=== PATIENT | male | born 1970 | race African-American/Black ===

== ENCOUNTER 2016-12-09 20:38 | Emergency (ER) | payer OTHER ==
[~2016-12-09] VITALS: Ht 182.9 cm; Wt 90.7 kg
[~2016-12-09 20:38] MED LIST: AVELOX400 MG PO; BONE ESSENT166.75 MG PO; BUTALB-APAP-CA1 EACH PO; CALCIUM 500 MG1 EACH PO; CEPHALEXIN500 MG PO; COMPAZINE10 MG PO; DELTASONE20 M1 PO; DILAUDID1 MG/ML IV; DILAUDID2 MG PO; GUMMI BEAR MUL1 EACH PO; IBUPROFEN100 M1 PO; IBUPROFEN800 MG PO; IRON325 M1 PO; NEURONTIN300 MG PO; NOVOLOG PE100 UNITS/ SC; ONDANSETRON4 MG/2 ML IV; OXYCODONE-APAP1 EACH PO; PERCOCET 5/31 TABLET PO; PREDNISONE10 MG PO; VALTREX50 MG/ML PO; VITAMIN B-121000 MC1 SL; VITAMIN B122500 MCG PO
[2016-12-09 22:00] LABS: CHLORIDE 102 mEq/L (99-109); SODIUM 138 mEq/L (136-147)
[2016-12-09 22:02] LABS: GLUCOSE 118 mg/dL (70-99)
[2016-12-09 22:03] LABS: ANION GAP 9 MEQ/L (2-14)
[2016-12-09 22:06] LABS: GFR ESTIMATE (CALCULATED) > 59 mL/min/
[2016-12-09 22:07] LABS: UREA NITROGEN (BUN) 12 mg/dL (9-23)
[2016-12-09 22:51] LABS: EOSINOPHIL (%) 0.5 % (0-5); HEMATOCRIT 38.3 % (38.0-50.0); IMMATURE GRANULOCYTE (%) 0.3 % (0.0-0.7); INSTRUMENT ABS NEUTROPHIL CT 3.3 K/uL; LYMPHOCYTE COUNT 1.9 K/uL (1.0-2.8); MCH 29.5 PG (29.0-34.0); MCHC 36.6 G/DL (30.0-36.0); MCV 80.6 FL (86-99); MEAN PLAT.VOLUME 10.5 uM^3 (9.0-12.4); MONOCYTE COUNT 0.5 K/uL (0-0.8); NEUTROPHIL (%) 57.4 % (45-76); NEUTROPHIL COUNT 3.3 K/uL (1.8-6.4); PLATELET COUNT 192 K/uL (156-360); RBC DIS.WIDTH-CV 12.8 % (11.8-14.6); RBC DIS.WIDTH-SD 37.5 % (39-53); RED BLOOD COUNT 4.75 M/uL (4.00-5.50); WHITE BLOOD COUNT 5.8 K/uL (4.1-10.2)
[2016-12-10 01:39] VITALS: BP 126/88
== END 2016-12-10 02:00 | disposition short-term general hospital (02) ==
LOC: EME 20:38 → EXP 20:38
DX: T85.848A Pain due to other internal prosthetic devices, implants and grafts, initial encounter (principal); G89.18 Other acute postprocedural pain; H54.62 Unqualified visual loss, left eye, normal vision right eye; Y83.8 Other surgical procedures as the cause of abnormal reaction of the patient, or of later complication, without mention of misadventure at the time of the procedure; C85.90 Non-Hodgkin lymphoma, unspecified, unspecified site; Z87.891 Personal history of nicotine dependence
CPT/HCPCS: 80048; 83605; 85025; 99281; 99285; J1885

== ENCOUNTER 2017-01-31 19:59 | Inpatient (IN) | payer OTHER ==
[~2017-01-31] VITALS: Ht 182.9 cm; Wt 90.4 kg
[2017-01-31 21:12] LABS: ADD MIUA? YES; BILIRUBIN NEGATIVE; BLOOD NEGATIVE; COLOR YELLOW ((YELLOW)); GLUCOSE (STRIP) NEGATIVE; KETONES 5; LEUKOCYTES NEGATIVE; NITRITE NEGATIVE; PROTEIN (STRIP) 100; SPECIFIC GRAVITY 1.018 (1.000-1.030); UROBILINOGEN 0.2 MG/DL (0.2-1.0)
[2017-01-31 21:17] LABS: BACTERIA NONE SEEN /HPF; EPITHELIAL CELLS RARE /HPF; MUCUS TRACE /LPF; RED BLOOD CELLS 0-5 /HPF (0-5); UCUL ADDED? NO; WHITE BLOOD CELLS 0-5 /HPF (0-5)
[2017-01-31 21:36] LABS: CHLORIDE 102 mEq/L (99-109); POTASSIUM 4.4 mEq/L (3.7-5.4); SODIUM 134 mEq/L (136-147)
[2017-01-31 21:38] LABS: GLUCOSE 111 mg/dL (70-99)
[2017-01-31 21:39] LABS: ANION GAP 9 MEQ/L (2-14)
[2017-01-31 21:40] LABS: TOTAL BILIRUBIN 0.9 mg/dL (0.0-1.0)
[2017-01-31 21:41] LABS: ALKALINE PHOSPHATASE 65 IU/L (3-129)
[2017-01-31 21:42] LABS: GFR ESTIMATE (CALCULATED) > 59 mL/min/
[2017-01-31 21:43] LABS: UREA NITROGEN (BUN) 13 mg/dL (9-23)
[2017-01-31 21:46] LABS: TROP-I INTERPRETATION NEGATIVE; TROPONIN-I < 0.01 ng/mL (0.0-0.30)
[2017-01-31 22:56] LABS: NRBC (%) 0.2 /100 WBC (0-0)
[2017-01-31 22:58] LABS: HEMATOCRIT 26.2 % (38.0-50.0); RED BLOOD COUNT 3.25 M/uL (4.00-5.50); WHITE BLOOD COUNT 8.4 K/uL (4.1-10.2)
[2017-01-31] MEDS ORDERED: CALCIUM 600 +1 EAC2 PO (23:19)
[2017-01-31] MEDS ORDERED: MEN UNDER 50 M1 EACH PO (23:20)
[2017-01-31] MEDS ORDERED: TYLENOL EXTRA500 MG PO (23:20)
[2017-01-31] MEDS ORDERED: FISH OIL 1,0001 EAC7 PO (23:21)
[2017-01-31 23:35] LABS: EOSINOPHIL (%) 0 % (0-5); IMM.PLATELET FRACTION 9.9 (1-7); IMMATURE GRANULOCYTE (%) 1.3 % (0.0-0.7); IMMATURE GRANULOCYTE COUNT 0.1 K/uL; INSTRUMENT ABS NEUTROPHIL CT 4.8 K/uL; LYMPHOCYTE COUNT 1.9 K/uL (1.0-2.8); MONOCYTE (%) 19.1 % (3-12); MONOCYTE COUNT 1.6 K/uL (0-0.8); NEUTROPHIL (%) 56.5 % (45-76); NEUTROPHIL COUNT 4.8 K/uL (1.8-6.4); PLAT.SUFFICIENCY DECREASED; PLATELET COUNT 60 K/uL (156-360)
[2017-01-31 23:36] LABS: MCH ND PG (29.0-34.0); MCHC ND G/DL (30.0-36.0); MCV ND FL (86-99); RBC DIS.WIDTH-CV ND % (11.8-14.6); RBC DIS.WIDTH-SD ND % (39-53)
[2017-02-01] VITALS (7 sets, daily range): BP systolic 104–131; BP diastolic 62–85
[2017-02-01 07:38] LABS: POINT-OF-CARE METER ID UU13113781
[2017-02-01 10:41] LABS: POINT-OF-CARE METER ID UU13113781
[2017-02-01 12:48] LABS: INFLUENZA A VIRAL ANTIGEN NEGATIVE; INFLUENZA B VIRAL ANTIGEN NEGATIVE
[2017-02-01 16:21] LABS: POINT-OF-CARE METER ID UU13113781
[2017-02-01 21:13] LABS: POINT-OF-CARE METER ID UU13113698
[2017-02-02 04:13] VITALS: BP 120/68
[2017-02-02 06:51] LABS: ANION GAP 8 MEQ/L (2-14); CHLORIDE 102 MEQ/L (99-109); GFR ESTIMATE (CALCULATED) > 59 mL/min/; GLUCOSE 129 mg/dL (70-99); POTASSIUM 4.1 MEQ/L (3.7-5.4); SAMPLE HEMOLYSIS CHECK 0; SAMPLE ICTERIC CHECK 0; SAMPLE LIPEMIA CHECK 0; SODIUM 135 MEQ/L (136-147); UREA NITROGEN (BUN) 7 mg/dL (9-23)
[2017-02-02 07:05] VITALS: BP 105/60
[2017-02-02 07:10] LABS: HEMATOCRIT 24.2 % (38.0-50.0); IMM.PLATELET FRACTION 7.7 (1-7); MCV 73.6 FL (86-99); MEAN PLAT.VOLUME 11.8 uM^3 (9.0-12.4); NRBC (%) 0.3 /100 WBC (0-0); PLATELET COUNT 55 K/uL (156-360); RBC DIS.WIDTH-CV 14.6 % (11.8-14.6); RBC DIS.WIDTH-SD 38.3 % (39-53); RED BLOOD COUNT 3.29 M/uL (4.00-5.50)
[2017-02-02 08:23] LABS: POINT-OF-CARE METER ID UU14174216; POINT-OF-CARE USER ID ENVKC36
[2017-02-02 11:54] VITALS: BP 114/62
[2017-02-02 11:58] LABS: POINT-OF-CARE METER ID UU13113698; POINT-OF-CARE USER ID ENVKC36
[2017-02-02 14:00] VITALS: BP 116/60
[2017-02-02 14:30] LABS: INTER. NORMALIZED RATIO 1.2; PROTHROMBIN TIME 12.4 (9.2-11.2); PTT 27.4 (25-32)
[2017-02-02 17:11] LABS: POINT-OF-CARE METER ID UU13113698; POINT-OF-CARE USER ID ENVKC36
[2017-02-02 19:39] VITALS: BP 98/51
[2017-02-02 20:48] VITALS: BP 107/61
[2017-02-03 00:23] VITALS: BP 99/65
[2017-02-03 07:40] LABS: ANION GAP 9 MEQ/L (2-14); CHLORIDE 102 MEQ/L (99-109); GFR ESTIMATE (CALCULATED) > 59 mL/min/; GLUCOSE 103 mg/dL (70-99); SAMPLE HEMOLYSIS CHECK 0; SAMPLE ICTERIC CHECK 0; SAMPLE LIPEMIA CHECK 0; SODIUM 135 MEQ/L (136-147); UREA NITROGEN (BUN) 11 mg/dL (9-23)
[2017-02-03 07:42] LABS: POTASSIUM 5.2 MEQ/L (3.7-5.4)
[2017-02-03 07:53] LABS: HEMATOCRIT 20.9 % (38.0-50.0); MCH 27.6 PG (29.0-34.0); MCHC 36.8 G/DL (30.0-36.0); MCV 74.9 FL (86-99); NRBC (%) 0.4 /100 WBC (0-0); RBC DIS.WIDTH-CV 14.6 % (11.8-14.6); RBC DIS.WIDTH-SD 39.1 % (39-53); RED BLOOD COUNT 2.79 M/uL (4.00-5.50); WHITE BLOOD COUNT 7.5 K/uL (4.1-10.2)
[2017-02-03 08:03] VITALS: BP 98/56
[2017-02-03 08:18] LABS: IMM.PLATELET FRACTION 11.4 (1-7); PLAT.SUFFICIENCY DECREASED; PLATELET COUNT 44 K/uL (156-360)
[2017-02-03 13:42] LABS: Flow Clinical Information NOT PROVIDED (()); Flow Number of Markers 14 (()); Flow Spec Viability 38 % (())
[2017-02-03 16:30] VITALS: BP 134/79
[2017-02-03 18:38] LABS: HEMATOCRIT 19.5 % (38.0-50.0); HEMATOLOGY COMMENT 1 COLD AGGLUTININS; MCH 27.7 PG (29.0-34.0); MCHC 37.4 G/DL (30.0-36.0); MCV 73.9 FL (86-99); MEAN PLAT.VOLUME 12.5 uM^3 (9.0-12.4); NRBC (%) 0.3 /100 WBC (0-0); PLATELET COUNT 54 K/uL (156-360); RBC DIS.WIDTH-CV 14.8 % (11.8-14.6); RBC DIS.WIDTH-SD 39.2 % (39-53); RED BLOOD COUNT 2.64 M/uL (4.00-5.50); WHITE BLOOD COUNT 6.5 K/uL (4.1-10.2)
[2017-02-03 23:21] VITALS: BP 119/99
[2017-02-03 23:38] VITALS: BP 121/64
[2017-02-04] VITALS (8 sets, daily range): BP systolic 99–126; BP diastolic 53–81
[2017-02-04 07:11] LABS: ANION GAP 11 MEQ/L (2-14); CHLORIDE 103 MEQ/L (99-109); GFR ESTIMATE (CALCULATED) > 59 mL/min/; GLUCOSE 102 mg/dL (70-99); POTASSIUM 4.8 MEQ/L (3.7-5.4); SAMPLE HEMOLYSIS CHECK 0; SAMPLE ICTERIC CHECK 0; SAMPLE LIPEMIA CHECK 0; SODIUM 139 MEQ/L (136-147); UREA NITROGEN (BUN) 10 mg/dL (9-23)
[2017-02-04 08:10] LABS: EOSINOPHIL (%) 0 % (0-5); IMM.PLATELET FRACTION 10.5 (1-7); IMMATURE GRANULOCYTE (%) 1.8 % (0.0-0.7); IMMATURE GRANULOCYTE COUNT 0.1 K/uL; INSTRUMENT ABS NEUTROPHIL CT 4.7 K/uL; LYMPHOCYTE COUNT 1.8 K/uL (1.0-2.8); MCH 28.3 PG (29.0-34.0); MCHC 36.4 G/DL (30.0-36.0); MCV 77.6 FL (86-99); MEAN PLAT.VOLUME 12.1 uM^3 (9.0-12.4); MONOCYTE (%) 11.8 % (3-12); MONOCYTE COUNT 0.9 K/uL (0-0.8); NEUTROPHIL (%) 62.4 % (45-76); NEUTROPHIL COUNT 4.7 K/uL (1.8-6.4); NRBC (%) 0.3 /100 WBC (0-0); PLATELET COUNT 52 K/uL (156-360); RBC DIS.WIDTH-CV 15.8 % (11.8-14.6); RBC DIS.WIDTH-SD 43.6 % (39-53); WHITE BLOOD COUNT 7.6 K/uL (4.1-10.2)
[2017-02-04 08:11] LABS: RED BLOOD COUNT 3.61 M/uL (4.00-5.50)
[2017-02-05 07:57] VITALS: BP 121/84
[2017-02-05 15:57] VITALS: BP 121/81
[2017-02-05 23:32] VITALS: BP 118/86
[2017-02-06 07:43] VITALS: BP 101/61
[2017-02-06 10:37] LABS: HEMATOCRIT 29.7 % (38.0-50.0); MCH 28.3 PG (29.0-34.0); MCHC 36.4 G/DL (30.0-36.0); NRBC (%) 0.6 /100 WBC (0-0); RBC DIS.WIDTH-CV 16.9 % (11.8-14.6); RBC DIS.WIDTH-SD 46.8 % (39-53); RED BLOOD COUNT 3.81 M/uL (4.00-5.50); WHITE BLOOD COUNT 7.2 K/uL (4.1-10.2)
[2017-02-06 10:56] LABS: IMM.PLATELET FRACTION 12.2 (1-7); PLATELET COUNT 33 K/uL (156-360)
[2017-02-06 10:57] LABS: PLAT.SUFFICIENCY VERY DECREASED
[2017-02-06 14:55] VITALS: BP 118/65
[2017-02-06 19:39] LABS: NRBC (%) 0.6 /100 WBC (0-0)
[2017-02-06 21:41] LABS: HEMATOCRIT 27.2 % (38.0-50.0); IMM.PLATELET FRACTION 12.8 (1-7); MCHC 36.4 G/DL (30.0-36.0); MCV 77.1 FL (86-99); PLATELET COUNT 34 K/uL (156-360); RED BLOOD COUNT 3.53 M/uL (4.00-5.50); WHITE BLOOD COUNT 6.6 K/uL (4.1-10.2)
[2017-02-06 22:08] LABS: PLAT.SUFFICIENCY DECREASED
[2017-02-06 22:34] VITALS: BP 126/77
[2017-02-06 22:50] VITALS: BP 106/67
[2017-02-06 23:53] VITALS: BP 129/69
[2017-02-07 00:29] VITALS: BP 114/69
[2017-02-07 00:59] VITALS: BP 103/62
[2017-02-07 02:05] VITALS: BP 105/63
[2017-02-07 08:30] VITALS: BP 124/80
[2017-02-07 10:27] LABS: HEMATOCRIT 26.4 % (38.0-50.0); MCH 27.9 PG (29.0-34.0); MCHC 36.4 G/DL (30.0-36.0); MCV 76.7 FL (86-99); MEAN PLAT.VOLUME 11.1 uM^3 (9.0-12.4); NRBC (%) 0.4 /100 WBC (0-0); RBC DIS.WIDTH-CV 17.1 % (11.8-14.6); RBC DIS.WIDTH-SD 47.3 % (39-53); RED BLOOD COUNT 3.44 M/uL (4.00-5.50); WHITE BLOOD COUNT 6.9 K/uL (4.1-10.2)
[2017-02-07 10:32] LABS: PLATELET COUNT 70 K/uL (156-360)
[2017-02-07] MEDS ORDERED: MEGACE20 MG PO (11:27)
== END 2017-02-07 12:35 | disposition home or self-care (01) | DRG 842 ==
LOC: EME → EDBD 19:59 → 5SOUTH 02-01 00:31 → EDOF 02-01 00:31 → 4EAST 02-01 01:43 → 5SOUTH 02-02 20:20
PROVIDERS: Anesthesiology; Emergency Medicine; Hospitalist; Internal Medicine; Nurse Practitioner Adult Health; Radiology Diagnostic Radiology
DX: C83.33 Diffuse large B-cell lymphoma, intra-abdominal lymph nodes (principal); D69.6 Thrombocytopenia, unspecified; I95.9 Hypotension, unspecified; D63.0 Anemia in neoplastic disease; E11.9 Type 2 diabetes mellitus without complications; F12.90 Cannabis use, unspecified, uncomplicated; L29.9 Pruritus, unspecified; Z87.891 Personal history of nicotine dependence; M54.2 Cervicalgia; M79.1 Myalgia; R00.0 Tachycardia, unspecified; R06.00 Dyspnea, unspecified; R10.32 Left lower quadrant pain; R11.0 Nausea; R53.1 Weakness; R61 Generalized hyperhidrosis; R63.0 Anorexia; R50.9 Fever, unspecified
CPT/HCPCS: 71020; 74177; 76942; 80048; 80053; 81003; 82948; 83605; 83880; 84484; 85025; 85027; 85610; 85730; 86900; 86901; 86920; 87040; 87502; 87651 90; 88184 90; 88185 90; 88189 90; 88305; 88341 TC; 88342 TC; 93005; 99281; 99285; J0692; J0744; J1200; J1885; J2405; J3010; J3370; J7030; J7050; P9016; P9035

== ENCOUNTER 2017-02-11 13:01 | Inpatient (IN) | payer OTHER ==
[~2017-02-11] VITALS: Ht 182.9 cm; Wt 73.6 kg
[~2017-02-11 13:01] MED LIST changes: +CALCIUM 600 +1 EAC2 PO; +FISH OIL 1,0001 EAC7 PO; +MEGACE20 MG PO; +MEN UNDER 50 M1 EACH PO; +TYLENOL EXTRA500 MG PO
[2017-02-11 20:07] VITALS: BP 123/70
[2017-02-11 23:00] VITALS: BP 95/56
[2017-02-11 23:26] VITALS: BP 93/54
[2017-02-12] VITALS (9 sets, daily range): BP systolic 101–119; BP diastolic 61–71
[2017-02-12 09:10] LABS: ANION GAP 11 MEQ/L (2-14); CHLORIDE 94 MEQ/L (99-109); GFR ESTIMATE (CALCULATED) > 59 mL/min/; GLUCOSE 156 mg/dL (70-99); POTASSIUM 4.5 MEQ/L (3.7-5.4); SAMPLE HEMOLYSIS CHECK 0; SAMPLE ICTERIC CHECK 0; SAMPLE LIPEMIA CHECK 0; SODIUM 130 MEQ/L (136-147); UREA NITROGEN (BUN) 19 mg/dL (9-23)
[2017-02-12 09:24] LABS: HEMATOCRIT 23.2 % (38.0-50.0); NRBC (%) 0.4 /100 WBC (0-0); RBC DIS.WIDTH-CV 17.2 % (11.8-14.6); RED BLOOD COUNT 3.01 M/uL (4.00-5.50)
[2017-02-12 09:39] LABS: ABS NEUTROPHIL COUNT 3.4; ANISOCYTOSIS 1+; ATYPICAL LYMPHOCYTE 2.6 %; BASOPHILS 0.9 %; EOSINOPHIL ABS CT 0; HEMATOLOGY COMMENT 1 COLD AGGLUTININS; HYPOCHROMASIA 1+; IMM.PLATELET FRACTION 4.9 (1-7); INSTRUMENT ABS NEUTROPHIL CT 3.1 K/uL; LYMPHOCYTES 17.5 % (15.0-45.0); MEAN PLAT.VOLUME 9.6 uM^3 (9.0-12.4); METAMYELOCYTES 1.8 %; MICROCYTOSIS 1+; NUCLEATED RBC'S 0.9; ROULEAUX 1+; TARGET CELLS 1+
[2017-02-12 09:40] LABS: MCH 27.2 PG (29.0-34.0); MCHC 35.3 G/DL (30.0-36.0); MCV 77.1 FL (86-99); PLATELET COUNT 38 K/uL (156-360)
[2017-02-12 09:41] LABS: BAND NEUTROPHILS 8.8 % (0-8.0); PLAT.SUFFICIENCY VERY DECREASED; SEG.NEUTROPHILS 59.6 % (46.0-76.0)
[2017-02-13] VITALS (9 sets, daily range): BP systolic 107–125; BP diastolic 61–79
[2017-02-13 07:01] LABS: ANION GAP 13 MEQ/L (2-14); CHLORIDE 99 MEQ/L (99-109); GFR ESTIMATE (CALCULATED) > 59 mL/min/; GLUCOSE 200 mg/dL (70-99); MAGNESIUM 2.3 mg/dl (1.3-2.7); POTASSIUM 5.1 MEQ/L (3.7-5.4); SAMPLE HEMOLYSIS CHECK 0; SAMPLE ICTERIC CHECK 0; SAMPLE LIPEMIA CHECK 0; SODIUM 132 MEQ/L (136-147); UREA NITROGEN (BUN) 21 mg/dL (9-23)
[2017-02-13 09:50] LABS: EOSINOPHIL (%) 0.2 % (0-5); HEMATOCRIT 20.7 % (38.0-50.0); IMMATURE GRANULOCYTE (%) 2.2 % (0.0-0.7); IMMATURE GRANULOCYTE COUNT 0.1 K/uL; INSTRUMENT ABS NEUTROPHIL CT 3.2 K/uL; LYMPHOCYTE COUNT 0.8 K/uL (1.0-2.8); MCH 27.2 PG (29.0-34.0); MCHC 34.8 G/DL (30.0-36.0); MCV 78.1 FL (86-99); MONOCYTE (%) 9.1 % (3-12); MONOCYTE COUNT 0.4 K/uL (0-0.8); NEUTROPHIL (%) 70.3 % (45-76); NEUTROPHIL COUNT 3.2 K/uL (1.8-6.4); NRBC (%) 0.7 /100 WBC (0-0); RBC DIS.WIDTH-CV 17.2 % (11.8-14.6); RBC DIS.WIDTH-SD 48.4 % (39-53); RED BLOOD COUNT 2.65 M/uL (4.00-5.50); WHITE BLOOD COUNT 4.6 K/uL (4.1-10.2)
[2017-02-13 09:52] LABS: IMM.PLATELET FRACTION 7.6 (1-7); PLAT.SUFFICIENCY DECREASED
[2017-02-13 09:55] LABS: PLATELET COUNT 23 K/uL (156-360)
[2017-02-14] VITALS (9 sets, daily range): BP systolic 99–125; BP diastolic 59–80
[2017-02-14 06:42] LABS: ANION GAP 8 MEQ/L (2-14); CHLORIDE 103 MEQ/L (99-109); GFR ESTIMATE (CALCULATED) > 59 mL/min/; GLUCOSE 145 mg/dL (70-99); MAGNESIUM 2.2 mg/dl (1.3-2.7); POTASSIUM 4.7 MEQ/L (3.7-5.4); SAMPLE HEMOLYSIS CHECK 0; SAMPLE ICTERIC CHECK 0; SAMPLE LIPEMIA CHECK 0; SODIUM 135 MEQ/L (136-147); UREA NITROGEN (BUN) 19 mg/dL (9-23)
[2017-02-14 07:05] LABS: EOSINOPHIL (%) 0 % (0-5); HEMATOCRIT 25.6 % (38.0-50.0); IMMATURE GRANULOCYTE (%) 1.4 % (0.0-0.7); IMMATURE GRANULOCYTE COUNT 0.1 K/uL; INSTRUMENT ABS NEUTROPHIL CT 2.8 K/uL; LYMPHOCYTE COUNT 0.6 K/uL (1.0-2.8); MCHC 34.8 G/DL (30.0-36.0); MCV 77.6 FL (86-99); MONOCYTE (%) 5.5 % (3-12); MONOCYTE COUNT 0.2 K/uL (0-0.8); NEUTROPHIL (%) 77.6 % (45-76); NEUTROPHIL COUNT 2.8 K/uL (1.8-6.4); RBC DIS.WIDTH-CV 16.3 % (11.8-14.6); RBC DIS.WIDTH-SD 45.9 % (39-53); WHITE BLOOD COUNT 3.6 K/uL (4.1-10.2)
[2017-02-14 07:35] LABS: IMM.PLATELET FRACTION 6.5 (1-7); PLAT.SUFFICIENCY DECREASED; PLATELET COUNT 18 K/uL (156-360)
[2017-02-15 01:31] VITALS: BP 113/70
[2017-02-15 06:39] LABS: ANION GAP 7 MEQ/L (2-14); CHLORIDE 106 MEQ/L (99-109); GFR ESTIMATE (CALCULATED) > 59 mL/min/; GLUCOSE 113 mg/dL (70-99); MAGNESIUM 2.3 mg/dl (1.3-2.7); POTASSIUM 4.6 MEQ/L (3.7-5.4); SAMPLE HEMOLYSIS CHECK 0; SAMPLE ICTERIC CHECK 0; SAMPLE LIPEMIA CHECK 0; SODIUM 137 MEQ/L (136-147); UREA NITROGEN (BUN) 19 mg/dL (9-23)
[2017-02-15 06:48] LABS: EOSINOPHIL (%) 0.3 % (0-5); HEMATOCRIT 24.9 % (38.0-50.0); IMMATURE GRANULOCYTE (%) 3.8 % (0.0-0.7); IMMATURE GRANULOCYTE COUNT 0.1 K/uL; INSTRUMENT ABS NEUTROPHIL CT 2.5 K/uL; LYMPHOCYTE COUNT 0.5 K/uL (1.0-2.8); MCHC 34.1 G/DL (30.0-36.0); MEAN PLAT.VOLUME 10.2 uM^3 (9.0-12.4); MONOCYTE (%) 3.2 % (3-12); MONOCYTE COUNT 0.1 K/uL (0-0.8); NEUTROPHIL (%) 78.4 % (45-76); NEUTROPHIL COUNT 2.5 K/uL (1.8-6.4); RBC DIS.WIDTH-CV 16.7 % (11.8-14.6); RBC DIS.WIDTH-SD 47.7 % (39-53); RED BLOOD COUNT 3.15 M/uL (4.00-5.50); WHITE BLOOD COUNT 3.2 K/uL (4.1-10.2)
[2017-02-15 06:49] LABS: PLATELET COUNT 94 K/uL (156-360)
[2017-02-15 09:12] VITALS: BP 113/70
[2017-02-15] MEDS ORDERED: BACTRIM,SEPT1 TABLET PO (11:18)
[2017-02-15] MEDS ORDERED: ZOFRAN8 MG PO (11:18)
[2017-02-15] MEDS ORDERED: ACYCLOVIR200 MG PO (11:18)
[2017-02-15] MEDS ORDERED: ALLOPURINOL100 MG PO (11:27)
== END 2017-02-15 12:59 | disposition home or self-care (01) | DRG 847 ==
LOC: 5EAST 13:01
PROVIDERS: Anesthesiology
PROC: 3E04305 Introduction of Other Antineoplastic into Central Vein, Percutaneous Approach (ICD-10-PCS; principal; 2017-02-11)
PROC: 30243N1 Transfusion of Nonautologous Red Blood Cells into Central Vein, Percutaneous Approach (ICD-10-PCS; 2017-02-13)
PROC: 30243R1 Transfusion of Nonautologous Platelets into Central Vein, Percutaneous Approach (ICD-10-PCS; 2017-02-14)
DX: Z51.11 Encounter for antineoplastic chemotherapy (principal); C83.39 Diffuse large B-cell lymphoma, extranodal and solid organ sites; D69.6 Thrombocytopenia, unspecified; D63.0 Anemia in neoplastic disease; E86.0 Dehydration; R50.9 Fever, unspecified; Z87.891 Personal history of nicotine dependence
CPT/HCPCS: 36415; 76937; 80048; 80053; 83735; 85025; 86900; 86901; 86920; J1100; J1200; J2469; J2930; J7030; J7040; J7050; J8540; J9045; J9181; J9208; J9209; J9310; P9016; P9035; Q0166

== ENCOUNTER 2017-03-04 22:34 | Inpatient (IN) | payer OTHER ==
[~2017-03-04] VITALS: Ht 182.9 cm; Wt 83.1 kg
[~2017-03-04 22:34] MED LIST changes: +ACYCLOVIR200 MG PO; +ALLOPURINOL100 MG PO; +BACTRIM,SEPT1 TABLET PO; +ZOFRAN8 MG PO
[2017-03-05 08:30] VITALS: BP 114/67
[2017-03-05 09:39] LABS: ALKALINE PHOSPHATASE 96 IU/L (3-129); ANION GAP 7 MEQ/L (2-14); CHLORIDE 104 MEQ/L (99-109); GFR ESTIMATE (CALCULATED) > 59 mL/min/; GLUCOSE 119 mg/dL (70-99); MAGNESIUM 1.7 mg/dl (1.3-2.7); SAMPLE HEMOLYSIS CHECK 0; SAMPLE ICTERIC CHECK 0; SAMPLE LIPEMIA CHECK 0; SODIUM 139 MEQ/L (136-147); TOTAL BILIRUBIN 0.8 MG/DL (0.0-1.0); UREA NITROGEN (BUN) 13 mg/dL (9-23)
[2017-03-05 10:14] LABS: EOSINOPHIL (%) 0.2 % (0-5); HEMATOCRIT 25.1 % (38.0-50.0); IMMATURE GRANULOCYTE (%) 1.6 % (0.0-0.7); IMMATURE GRANULOCYTE COUNT 0.1 K/uL; INSTRUMENT ABS NEUTROPHIL CT 2.8 K/uL; LYMPHOCYTE COUNT 1.3 K/uL (1.0-2.8); MCHC 33.9 G/DL (30.0-36.0); MCV 85.7 FL (86-99); MONOCYTE (%) 17.2 % (3-12); MONOCYTE COUNT 0.9 K/uL (0-0.8); NEUTROPHIL (%) 55.6 % (45-76); NEUTROPHIL COUNT 2.8 K/uL (1.8-6.4); RBC DIS.WIDTH-CV 17.4 % (11.8-14.6); RBC DIS.WIDTH-SD 51.6 % (39-53); WHITE BLOOD COUNT 5.1 K/uL (4.1-10.2)
[2017-03-05 10:18] LABS: RED BLOOD COUNT 2.93 M/uL (4.00-5.50)
[2017-03-05 10:31] LABS: IMM.PLATELET FRACTION 6.3 (1-7); MEAN PLAT.VOLUME 11.3 uM^3 (9.0-12.4); PLAT.SUFFICIENCY DECREASED
[2017-03-05 10:35] LABS: PLATELET COUNT 48 K/uL (156-360)
[2017-03-05 15:00] VITALS: BP 106/56
[2017-03-06] VITALS (15 sets, daily range): BP systolic 112–145; BP diastolic 58–84
[2017-03-06 06:34] LABS: ALKALINE PHOSPHATASE 82 IU/L (3-129); ANION GAP 6 MEQ/L (2-14); CHLORIDE 107 MEQ/L (99-109); GFR ESTIMATE (CALCULATED) > 59 mL/min/; GLUCOSE 161 mg/dL (70-99); MAGNESIUM 1.8 mg/dl (1.3-2.7); POTASSIUM 4.3 MEQ/L (3.7-5.4); SAMPLE HEMOLYSIS CHECK 0; SAMPLE ICTERIC CHECK 0; SAMPLE LIPEMIA CHECK 0; SODIUM 141 MEQ/L (136-147); TOTAL BILIRUBIN 0.8 MG/DL (0.0-1.0); UREA NITROGEN (BUN) 13 mg/dL (9-23)
[2017-03-06 07:07] LABS: EOSINOPHIL (%) 0 % (0-5); IMMATURE GRANULOCYTE (%) 1.2 % (0.0-0.7); IMMATURE GRANULOCYTE COUNT 0.1 K/uL; LYMPHOCYTE COUNT 0.9 K/uL (1.0-2.8); MCH 30.4 PG (29.0-34.0); MEAN PLAT.VOLUME 10.5 uM^3 (9.0-12.4); MONOCYTE (%) 12.6 % (3-12); MONOCYTE COUNT 1.2 K/uL (0-0.8); NRBC (%) 0.5 /100 WBC (0-0); PLATELET COUNT 45 K/uL (156-360); RBC DIS.WIDTH-CV 17.2 % (11.8-14.6); RBC DIS.WIDTH-SD 52.2 % (39-53); RED BLOOD COUNT 2.53 M/uL (4.00-5.50); WHITE BLOOD COUNT 9.2 K/uL (4.1-10.2)
[2017-03-06 07:25] LABS: PLAT.SUFFICIENCY DECREASED
[2017-03-07 06:44] LABS: EOSINOPHIL (%) 0 % (0-5); IMMATURE GRANULOCYTE (%) 0.6 % (0.0-0.7); IMMATURE GRANULOCYTE COUNT 0.1 K/uL; INSTRUMENT ABS NEUTROPHIL CT 5.7 K/uL; LYMPHOCYTE COUNT 1.3 K/uL (1.0-2.8); MCV 86.6 FL (86-99); MEAN PLAT.VOLUME 10.8 uM^3 (9.0-12.4); MONOCYTE (%) 12.8 % (3-12); NEUTROPHIL COUNT 5.7 K/uL (1.8-6.4); NRBC (%) 0.4 /100 WBC (0-0); RBC DIS.WIDTH-CV 16.7 % (11.8-14.6); RBC DIS.WIDTH-SD 48.8 % (39-53); RED BLOOD COUNT 2.54 M/uL (4.00-5.50); WHITE BLOOD COUNT 8.1 K/uL (4.1-10.2)
[2017-03-07 06:53] LABS: MCH 36.6 PG (29.0-34.0); MCHC 42.3 G/DL (30.0-36.0); PLATELET COUNT 106 K/uL (156-360)
[2017-03-07 07:12] LABS: ALKALINE PHOSPHATASE 71 IU/L (3-129); ANION GAP 8 MEQ/L (2-14); CHLORIDE 108 MEQ/L (99-109); GFR ESTIMATE (CALCULATED) > 59 mL/min/; MAGNESIUM 1.8 mg/dl (1.3-2.7); SAMPLE HEMOLYSIS CHECK 0; SAMPLE ICTERIC CHECK 0; SAMPLE LIPEMIA CHECK 0; SODIUM 142 MEQ/L (136-147); UREA NITROGEN (BUN) 13 mg/dL (9-23)
[2017-03-07 07:13] LABS: GLUCOSE 94 mg/dL (70-99); TOTAL BILIRUBIN 1.1 MG/DL (0.0-1.0)
[2017-03-07 08:00] VITALS: BP 122/67
[2017-03-07 15:23] VITALS: BP 116/69
[2017-03-07 23:03] VITALS: BP 127/78
[2017-03-08 07:00] LABS: ALKALINE PHOSPHATASE 73 IU/L (3-129); ANION GAP 6 MEQ/L (2-14); CHLORIDE 102 MEQ/L (99-109); GFR ESTIMATE (CALCULATED) > 59 mL/min/; GLUCOSE 83 mg/dL (70-99); MAGNESIUM 1.8 mg/dl (1.3-2.7); POTASSIUM 4.1 MEQ/L (3.7-5.4); SAMPLE HEMOLYSIS CHECK 0; SAMPLE ICTERIC CHECK 0; SAMPLE LIPEMIA CHECK 0; SODIUM 138 MEQ/L (136-147); UREA NITROGEN (BUN) 13 mg/dL (9-23)
[2017-03-08 07:08] VITALS: BP 119/67
[2017-03-08 07:08] LABS: TOTAL BILIRUBIN 1.8 MG/DL (0.0-1.0)
[2017-03-08 07:12] LABS: EOSINOPHIL (%) 0 % (0-5); HEMATOCRIT 27.4 % (38.0-50.0); IMMATURE GRANULOCYTE (%) 0.5 % (0.0-0.7); INSTRUMENT ABS NEUTROPHIL CT 2.8 K/uL; LYMPHOCYTE COUNT 1.1 K/uL (1.0-2.8); MCH 30.4 PG (29.0-34.0); MCHC 35.8 G/DL (30.0-36.0); MCV 85.1 FL (86-99); MEAN PLAT.VOLUME 10.5 uM^3 (9.0-12.4); MONOCYTE (%) 7.2 % (3-12); MONOCYTE COUNT 0.3 K/uL (0-0.8); NEUTROPHIL (%) 66.6 % (45-76); NEUTROPHIL COUNT 2.8 K/uL (1.8-6.4); PLATELET COUNT 117 K/uL (156-360); RBC DIS.WIDTH-SD 50.4 % (39-53); RED BLOOD COUNT 3.22 M/uL (4.00-5.50); WHITE BLOOD COUNT 4.2 K/uL (4.1-10.2)
== END 2017-03-08 09:56 | disposition home or self-care (01) | DRG 846 ==
LOC: ENRESERV 22:34 → 5EAST 03-05 08:13
PROVIDERS: Anesthesiology
PROC: 3E03305 Introduction of Other Antineoplastic into Peripheral Vein, Percutaneous Approach (ICD-10-PCS; principal; 2017-03-05)
PROC: 30233N1 Transfusion of Nonautologous Red Blood Cells into Peripheral Vein, Percutaneous Approach (ICD-10-PCS; 2017-03-06)
PROC: 30233R1 Transfusion of Nonautologous Platelets into Peripheral Vein, Percutaneous Approach (ICD-10-PCS; 2017-03-06)
DX: Z51.11 Encounter for antineoplastic chemotherapy (principal); C83.39 Diffuse large B-cell lymphoma, extranodal and solid organ sites; D61.810 Antineoplastic chemotherapy induced pancytopenia; R20.0 Anesthesia of skin; Z87.891 Personal history of nicotine dependence
CPT/HCPCS: 71010; 80053; 83735; 85025; 86900; 86901; 86920; J1100; J1200; J2405; J2469; J2930; J7030; J7040; J7050; J8540; J9045; J9181; J9208; J9209; J9310; P9016; P9037; Q0166

== ENCOUNTER 2017-03-25 19:35 | Inpatient (IN) | payer OTHER ==
[~2017-03-25] VITALS: Ht 182.9 cm; Wt 82.0 kg
[~2017-03-25 19:35] MED LIST changes: +ZOVIRAX200 MG PO
[2017-03-26] VITALS (10 sets, daily range): BP systolic 100–128; BP diastolic 58–80
[2017-03-26 11:28] LABS: EOSINOPHIL (%) 0.2 % (0-5); HEMATOCRIT 23.8 % (38.0-50.0); IMMATURE GRANULOCYTE (%) 1.3 % (0.0-0.7); IMMATURE GRANULOCYTE COUNT 0.1 K/uL; INSTRUMENT ABS NEUTROPHIL CT 2.8 K/uL; MCH 29.5 PG (29.0-34.0); MCHC 32.8 G/DL (30.0-36.0); MCV 90.2 FL (86-99); MONOCYTE (%) 15.9 % (3-12); MONOCYTE COUNT 0.7 K/uL (0-0.8); NEUTROPHIL (%) 60.2 % (45-76); NEUTROPHIL COUNT 2.8 K/uL (1.8-6.4); NRBC (%) 2.4 /100 WBC (0-0); PLATELET COUNT 89 K/uL (156-360); RBC DIS.WIDTH-CV 18.5 % (11.8-14.6); RBC DIS.WIDTH-SD 53.7 % (39-53); RED BLOOD COUNT 2.64 M/uL (4.00-5.50); WHITE BLOOD COUNT 4.7 K/uL (4.1-10.2)
[2017-03-26 12:18] LABS: ANION GAP 10 MEQ/L (2-14); CHLORIDE 108 MEQ/L (99-109); GFR ESTIMATE (CALCULATED) > 59 mL/min/; GLUCOSE 110 mg/dL (70-99); SAMPLE HEMOLYSIS CHECK 0; SAMPLE ICTERIC CHECK 0; SAMPLE LIPEMIA CHECK 0; SODIUM 143 MEQ/L (136-147); UREA NITROGEN (BUN) 11 mg/dL (9-23)
[2017-03-27 05:16] VITALS: BP 120/72
[2017-03-27 06:10] LABS: EOSINOPHIL (%) 0 % (0-5); HEMATOCRIT 30.4 % (38.0-50.0); IMMATURE GRANULOCYTE (%) 1.9 % (0.0-0.7); IMMATURE GRANULOCYTE COUNT 0.2 K/uL; INSTRUMENT ABS NEUTROPHIL CT 9.4 K/uL; LYMPHOCYTE COUNT 0.6 K/uL (1.0-2.8); MCHC 34.9 G/DL (30.0-36.0); MCV 88.9 FL (86-99); MEAN PLAT.VOLUME 12.3 uM^3 (9.0-12.4); MONOCYTE (%) 0.6 % (3-12); MONOCYTE COUNT 0.1 K/uL (0-0.8); NEUTROPHIL (%) 91.8 % (45-76); NEUTROPHIL COUNT 9.4 K/uL (1.8-6.4); NRBC (%) 0.8 /100 WBC (0-0); PLATELET COUNT 102 K/uL (156-360); RBC DIS.WIDTH-CV 17.5 % (11.8-14.6); RBC DIS.WIDTH-SD 50.8 % (39-53); WHITE BLOOD COUNT 10.3 K/uL (4.1-10.2)
[2017-03-27 06:11] LABS: RED BLOOD COUNT 3.42 M/uL (4.00-5.50)
[2017-03-27 06:31] LABS: ALKALINE PHOSPHATASE 76 IU/L (3-129); ANION GAP 9 MEQ/L (2-14); CHLORIDE 108 MEQ/L (99-109); GFR ESTIMATE (CALCULATED) > 59 mL/min/; GLUCOSE 169 mg/dL (70-99); MAGNESIUM 1.8 mg/dl (1.3-2.7); POTASSIUM 4.5 MEQ/L (3.7-5.4); SAMPLE HEMOLYSIS CHECK 0; SAMPLE ICTERIC CHECK 0; SAMPLE LIPEMIA CHECK 0; SODIUM 142 MEQ/L (136-147); TOTAL BILIRUBIN 0.7 MG/DL (0.0-1.0); UREA NITROGEN (BUN) 11 mg/dL (9-23)
[2017-03-27 08:18] VITALS: BP 107/58
[2017-03-27 12:36] VITALS: BP 128/74
[2017-03-27 16:31] VITALS: BP 137/83
[2017-03-27 19:48] VITALS: BP 134/88
[2017-03-28] VITALS (7 sets, daily range): BP systolic 111–148; BP diastolic 68–95
[2017-03-28 06:34] LABS: EOSINOPHIL (%) 0 % (0-5); HEMATOCRIT 29.7 % (38.0-50.0); IMMATURE GRANULOCYTE (%) 0.8 % (0.0-0.7); IMMATURE GRANULOCYTE COUNT 0.1 K/uL; INSTRUMENT ABS NEUTROPHIL CT 7.3 K/uL; LYMPHOCYTE COUNT 0.7 K/uL (1.0-2.8); MCHC 33.7 G/DL (30.0-36.0); MCV 89.2 FL (86-99); MEAN PLAT.VOLUME 11.9 uM^3 (9.0-12.4); MONOCYTE (%) 11.8 % (3-12); MONOCYTE COUNT 1.1 K/uL (0-0.8); NEUTROPHIL (%) 79.7 % (45-76); NEUTROPHIL COUNT 7.3 K/uL (1.8-6.4); NRBC (%) 0.3 /100 WBC (0-0); PLATELET COUNT 112 K/uL (156-360); RBC DIS.WIDTH-CV 17.7 % (11.8-14.6); RBC DIS.WIDTH-SD 53.1 % (39-53); RED BLOOD COUNT 3.33 M/uL (4.00-5.50); WHITE BLOOD COUNT 9.1 K/uL (4.1-10.2)
[2017-03-28 07:09] LABS: ALKALINE PHOSPHATASE 68 IU/L (3-129); ANION GAP 8 MEQ/L (2-14); CHLORIDE 108 MEQ/L (99-109); GFR ESTIMATE (CALCULATED) > 59 mL/min/; MAGNESIUM 1.8 mg/dl (1.3-2.7); SAMPLE HEMOLYSIS CHECK 0; SAMPLE ICTERIC CHECK 0; SAMPLE LIPEMIA CHECK 0; SODIUM 141 MEQ/L (136-147); TOTAL BILIRUBIN 0.7 MG/DL (0.0-1.0); UREA NITROGEN (BUN) 14 mg/dL (9-23)
[2017-03-28 07:10] LABS: GLUCOSE 115 mg/dL (70-99)
[2017-03-28 10:57] LABS: POINT-OF-CARE METER ID UU13113725
[2017-03-28 16:15] LABS: POINT-OF-CARE METER ID UU13113725
[2017-03-29 06:43] LABS: EOSINOPHIL (%) 0 % (0-5); HEMATOCRIT 30.5 % (38.0-50.0); IMMATURE GRANULOCYTE (%) 0.3 % (0.0-0.7); INSTRUMENT ABS NEUTROPHIL CT 5.1 K/uL; LYMPHOCYTE COUNT 0.5 K/uL (1.0-2.8); MCH 29.9 PG (29.0-34.0); MCHC 33.8 G/DL (30.0-36.0); MCV 88.4 FL (86-99); MEAN PLAT.VOLUME 11.7 uM^3 (9.0-12.4); MONOCYTE (%) 6.4 % (3-12); MONOCYTE COUNT 0.4 K/uL (0-0.8); NEUTROPHIL (%) 85.5 % (45-76); NEUTROPHIL COUNT 5.1 K/uL (1.8-6.4); PLATELET COUNT 115 K/uL (156-360); RBC DIS.WIDTH-CV 16.8 % (11.8-14.6); RBC DIS.WIDTH-SD 52.5 % (39-53); RED BLOOD COUNT 3.45 M/uL (4.00-5.50); WHITE BLOOD COUNT 5.9 K/uL (4.1-10.2)
[2017-03-29 07:06] LABS: ALKALINE PHOSPHATASE 68 IU/L (3-129); ANION GAP 8 MEQ/L (2-14); CHLORIDE 101 MEQ/L (99-109); GFR ESTIMATE (CALCULATED) > 59 mL/min/; GLUCOSE 112 mg/dL (70-99); MAGNESIUM 1.8 mg/dl (1.3-2.7); POTASSIUM 4.5 MEQ/L (3.7-5.4); SAMPLE HEMOLYSIS CHECK 0; SAMPLE ICTERIC CHECK 0; SAMPLE LIPEMIA CHECK 0; SODIUM 137 MEQ/L (136-147); UREA NITROGEN (BUN) 13 mg/dL (9-23)
[2017-03-29 07:10] LABS: TOTAL BILIRUBIN 1.4 MG/DL (0.0-1.0)
[2017-03-29 07:23] VITALS: BP 107/61
== END 2017-03-29 10:44 | disposition home or self-care (01) | DRG 847 ==
LOC: ENRESERV 19:35 → 5EAST 03-26 09:46
PROVIDERS: Anesthesiology
PROC: 30233N1 Transfusion of Nonautologous Red Blood Cells into Peripheral Vein, Percutaneous Approach (ICD-10-PCS; principal; 2017-03-26)
PROC: 3E03305 Introduction of Other Antineoplastic into Peripheral Vein, Percutaneous Approach (ICD-10-PCS; 2017-03-27)
DX: Z51.11 Encounter for antineoplastic chemotherapy (principal); D61.9 Aplastic anemia, unspecified; C83.39 Diffuse large B-cell lymphoma, extranodal and solid organ sites; D69.6 Thrombocytopenia, unspecified; D64.81 Anemia due to antineoplastic chemotherapy; T45.1X5A Adverse effect of antineoplastic and immunosuppressive drugs, initial encounter; Z72.0 Tobacco use
CPT/HCPCS: 71010; 80048; 80053; 82948; 83735; 85025; 86850; 86900; 86901; 86920; J1100; J1200; J2405; J2469; J2930; J7030; J7040; J7050; J8540; J9045; J9181; J9208; J9209; J9310; P9016; Q0166

== ENCOUNTER 2017-05-31 | Inpatient (IN) | payer OTHER ==
[~2017-05-31] VITALS: Ht 182.9 cm; Wt 94.1 kg
[2017-06-01 12:50] VITALS: BP 139/92
[2017-06-01] MEDS ORDERED: B-123000 MCG SL (14:00)
[2017-06-01 14:16] LABS: HEMATOCRIT 36.5 % (38.0-50.0); IMMATURE GRANULOCYTE (%) 0.3 % (0.0-0.7); INSTRUMENT ABS NEUTROPHIL CT 1.3 K/uL; LYMPHOCYTE COUNT 1.3 K/uL (1.0-2.8); MCH 31.8 PG (29.0-34.0); MCHC 35.6 G/DL (30.0-36.0); MCV 89.2 FL (86-99); MEAN PLAT.VOLUME 11.1 uM^3 (9.0-12.4); MONOCYTE (%) 11.9 % (3-12); MONOCYTE COUNT 0.4 K/uL (0-0.8); NEUTROPHIL (%) 42.6 % (45-76); NEUTROPHIL COUNT 1.3 K/uL (1.8-6.4); RBC DIS.WIDTH-CV 12.8 % (11.8-14.6); RBC DIS.WIDTH-SD 42.2 % (39-53); RED BLOOD COUNT 4.09 M/uL (4.00-5.50); WHITE BLOOD COUNT 2.9 K/uL (4.1-10.2)
[2017-06-01 14:19] LABS: PLATELET COUNT 74 K/uL (156-360)
[2017-06-01 14:36] LABS: ANION GAP 6 MEQ/L (2-14); CHLORIDE 109 MEQ/L (99-109); GFR ESTIMATE (CALCULATED) > 59 mL/min/; GLUCOSE 74 mg/dL (70-99); POTASSIUM 4.2 MEQ/L (3.7-5.4); SAMPLE HEMOLYSIS CHECK 0; SAMPLE ICTERIC CHECK 0; SAMPLE LIPEMIA CHECK 0; SODIUM 141 MEQ/L (136-147); UREA NITROGEN (BUN) 15 mg/dL (9-23)
[2017-06-01 15:45] VITALS: BP 135/88
[2017-06-01 23:52] VITALS: BP 113/73
[2017-06-02 06:45] VITALS: BP 126/76
[2017-06-02 06:50] LABS: EOSINOPHIL (%) 0 % (0-5); HEMATOCRIT 35.9 % (38.0-50.0); IMMATURE GRANULOCYTE (%) 0.5 % (0.0-0.7); LYMPHOCYTE COUNT 0.7 K/uL (1.0-2.8); MCH 31.6 PG (29.0-34.0); MCHC 36.2 G/DL (30.0-36.0); MCV 87.3 FL (86-99); MEAN PLAT.VOLUME 10.9 uM^3 (9.0-12.4); MONOCYTE (%) 2.1 % (3-12); MONOCYTE COUNT 0.1 K/uL (0-0.8); NEUTROPHIL (%) 85.1 % (45-76); PLATELET COUNT 72 K/uL (156-360); RBC DIS.WIDTH-CV 12.4 % (11.8-14.6); RBC DIS.WIDTH-SD 39.8 % (39-53); RED BLOOD COUNT 4.11 M/uL (4.00-5.50); WHITE BLOOD COUNT 5.9 K/uL (4.1-10.2)
[2017-06-02 07:14] LABS: ALKALINE PHOSPHATASE 66 IU/L (3-129); ANION GAP 11 MEQ/L (2-14); CHLORIDE 105 MEQ/L (99-109); GFR ESTIMATE (CALCULATED) > 59 mL/min/; GLUCOSE 157 mg/dL (70-99); MAGNESIUM 1.6 mg/dl (1.3-2.7); POTASSIUM 4.1 MEQ/L (3.7-5.4); SAMPLE HEMOLYSIS CHECK 0; SAMPLE ICTERIC CHECK 0; SAMPLE LIPEMIA CHECK 0; SODIUM 139 MEQ/L (136-147); TOTAL BILIRUBIN 0.5 MG/DL (0.0-1.0); UREA NITROGEN (BUN) 17 mg/dL (9-23)
[2017-06-02 15:25] VITALS: BP 126/83
[2017-06-02 16:33] VITALS: BP 129/82
[2017-06-02 23:48] VITALS: BP 125/73
[2017-06-03 06:29] LABS: EOSINOPHIL (%) 0 % (0-5); HEMATOCRIT 35.8 % (38.0-50.0); IMMATURE GRANULOCYTE (%) 0.6 % (0.0-0.7); IMMATURE GRANULOCYTE COUNT 0.1 K/uL; INSTRUMENT ABS NEUTROPHIL CT 7.1 K/uL; LYMPHOCYTE COUNT 0.7 K/uL (1.0-2.8); MCH 31.9 PG (29.0-34.0); MCHC 36.6 G/DL (30.0-36.0); MCV 87.1 FL (86-99); MEAN PLAT.VOLUME 11.6 uM^3 (9.0-12.4); MONOCYTE (%) 2.9 % (3-12); MONOCYTE COUNT 0.2 K/uL (0-0.8); NEUTROPHIL (%) 87.5 % (45-76); NEUTROPHIL COUNT 7.1 K/uL (1.8-6.4); PLATELET COUNT 81 K/uL (156-360); RBC DIS.WIDTH-CV 12.7 % (11.8-14.6); RBC DIS.WIDTH-SD 40.2 % (39-53); RED BLOOD COUNT 4.11 M/uL (4.00-5.50); WHITE BLOOD COUNT 8.1 K/uL (4.1-10.2)
[2017-06-03 06:42] VITALS: BP 129/84
[2017-06-03 06:55] LABS: ALKALINE PHOSPHATASE 61 IU/L (3-129); ANION GAP 8 MEQ/L (2-14); CHLORIDE 105 MEQ/L (99-109); GFR ESTIMATE (CALCULATED) > 59 mL/min/; GLUCOSE 126 mg/dL (70-99); MAGNESIUM 1.8 mg/dl (1.3-2.7); POTASSIUM 4.1 MEQ/L (3.7-5.4); SAMPLE HEMOLYSIS CHECK 0; SAMPLE ICTERIC CHECK 0; SAMPLE LIPEMIA CHECK 0; SODIUM 139 MEQ/L (136-147); UREA NITROGEN (BUN) 16 mg/dL (9-23)
[2017-06-03 06:56] LABS: TOTAL BILIRUBIN 0.8 MG/DL (0.0-1.0)
[2017-06-03 15:24] VITALS: BP 124/84
[2017-06-03 23:31] VITALS: BP 138/88
[2017-06-04 06:54] LABS: EOSINOPHIL (%) 0 % (0-5); HEMATOCRIT 34.9 % (38.0-50.0); IMMATURE GRANULOCYTE (%) 0.3 % (0.0-0.7); INSTRUMENT ABS NEUTROPHIL CT 4.2 K/uL; LYMPHOCYTE COUNT 1.4 K/uL (1.0-2.8); MCH 31.7 PG (29.0-34.0); MCHC 36.4 G/DL (30.0-36.0); MEAN PLAT.VOLUME 11.1 uM^3 (9.0-12.4); MONOCYTE (%) 4.4 % (3-12); MONOCYTE COUNT 0.3 K/uL (0-0.8); NEUTROPHIL (%) 71.3 % (45-76); NEUTROPHIL COUNT 4.2 K/uL (1.8-6.4); PLATELET COUNT 65 K/uL (156-360); RBC DIS.WIDTH-CV 12.4 % (11.8-14.6); RBC DIS.WIDTH-SD 39.5 % (39-53); RED BLOOD COUNT 4.01 M/uL (4.00-5.50); WHITE BLOOD COUNT 5.9 K/uL (4.1-10.2)
[2017-06-04 07:33] LABS: ALKALINE PHOSPHATASE 57 IU/L (3-129); ANION GAP 9 MEQ/L (2-14); CHLORIDE 105 MEQ/L (99-109); GFR ESTIMATE (CALCULATED) > 59 mL/min/; MAGNESIUM 1.9 mg/dl (1.3-2.7); POTASSIUM 4.1 MEQ/L (3.7-5.4); SAMPLE HEMOLYSIS CHECK 0; SAMPLE ICTERIC CHECK 0; SAMPLE LIPEMIA CHECK 0; SODIUM 141 MEQ/L (136-147); UREA NITROGEN (BUN) 16 mg/dL (9-23)
[2017-06-04 07:37] LABS: GLUCOSE 85 mg/dL (70-99); TOTAL BILIRUBIN 1.4 MG/DL (0.0-1.0)
[2017-06-04 08:00] VITALS: BP 130/82
[2017-06-04 15:19] VITALS: BP 103/63
[2017-06-05 00:17] VITALS: BP 109/72
[2017-06-05 06:23] LABS: EOSINOPHIL (%) 0 % (0-5); HEMATOCRIT 35.1 % (38.0-50.0); IMMATURE GRANULOCYTE (%) 0.4 % (0.0-0.7); INSTRUMENT ABS NEUTROPHIL CT 3.7 K/uL; LYMPHOCYTE COUNT 0.8 K/uL (1.0-2.8); MCH 31.7 PG (29.0-34.0); MCHC 36.2 G/DL (30.0-36.0); MCV 87.5 FL (86-99); MEAN PLAT.VOLUME 10.4 uM^3 (9.0-12.4); MONOCYTE (%) 1.5 % (3-12); MONOCYTE COUNT 0.1 K/uL (0-0.8); NEUTROPHIL (%) 81.2 % (45-76); NEUTROPHIL COUNT 3.7 K/uL (1.8-6.4); PLATELET COUNT 61 K/uL (156-360); RBC DIS.WIDTH-CV 12.2 % (11.8-14.6); RBC DIS.WIDTH-SD 39.3 % (39-53); RED BLOOD COUNT 4.01 M/uL (4.00-5.50); WHITE BLOOD COUNT 4.5 K/uL (4.1-10.2)
[2017-06-05 07:01] LABS: ALKALINE PHOSPHATASE 53 IU/L (3-129); ANION GAP 7 MEQ/L (2-14); CHLORIDE 102 MEQ/L (99-109); GFR ESTIMATE (CALCULATED) > 59 mL/min/; MAGNESIUM 1.7 mg/dl (1.3-2.7); POTASSIUM 4.2 MEQ/L (3.7-5.4); SAMPLE HEMOLYSIS CHECK 0; SAMPLE ICTERIC CHECK 0; SAMPLE LIPEMIA CHECK 0; SODIUM 137 MEQ/L (136-147); TOTAL BILIRUBIN 1.3 MG/DL (0.0-1.0); UREA NITROGEN (BUN) 15 mg/dL (9-23)
[2017-06-05 07:07] LABS: GLUCOSE 112 mg/dL (70-99)
[2017-06-05 07:25] VITALS: BP 102/63
== END 2017-06-05 14:54 | disposition home or self-care (01) | DRG 847 ==
LOC: ENRESERV → 5EAST 06-01 11:33
PROVIDERS: Anesthesiology
DX: Z51.11 Encounter for antineoplastic chemotherapy (principal); C83.39 Diffuse large B-cell lymphoma, extranodal and solid organ sites; D69.6 Thrombocytopenia, unspecified; R11.2 Nausea with vomiting, unspecified; T45.1X5A Adverse effect of antineoplastic and immunosuppressive drugs, initial encounter; Z87.891 Personal history of nicotine dependence
CPT/HCPCS: 80048; 80053; 83735; 85025; 86850; 86900; 86901; C1753; J1100; J1200; J2060; J2405; J2469; J2930; J7030; J7040; J7050; J8540; J9045; J9181; J9208; J9209; J9310; Q0166